=== PATIENT | male | born 2000 | race Two or more races ===

== ENCOUNTER 2018-05-08 00:52 | Emergency (ER) | payer OTHER ==
[~2018-05-08] VITALS: Ht 175.3 cm; Wt 85.0 kg
[2018-05-08 00:58] VITALS: BP 127/85
== END 2018-05-08 01:34 | disposition home or self-care (01) ==
LOC: ED 01:00
DX: H60.502 Unspecified acute noninfective otitis externa, left ear (principal)
CPT/HCPCS: 99283